=== PATIENT | female | born 1980 | race African-American/Black ===

== ENCOUNTER 2016-09-09 03:55 | Emergency (ER) | payer BC, OTHER ==
[~2016-09-09] VITALS: Ht 172.7 cm; Wt 131.1 kg
[~2016-09-09 03:55] MED LIST: ACET-704 PO; AMOX1TAB61 PO; NAPR500T8 PO; PRED50TA PO
--- NOTE | 2016-09-09 04:07 | PHYS DOC ---
Past Medical History Past Medical History: Other Additional Past Medical Histor: PCOS, ECTOPIC PREGNANCIES Past Surgical History: Tubal ligation, Other Additional Past Surgical Histo: D&C Alcohol Use: None Drug Use: None Adult General Chief Complaint Chief Complaint: FACE PROBLEM HPI HPI Patient is a 35 year old female presenting to the emergency department for evaluation of facial pain that has been going on for the past 4-5 days. Patient reports that both of her jaws are hurting and she has been taking ibuprofen which has taken the left jaw pain away however now her right jaw is hurting her. She feels that her wisdom teeth are coming in. No fevers chills nausea vomiting facial swelling. Review of Systems Review of Systems Constitutional: Denies fever or chills [] HENT: Denies nasal congestion or sore throat [] Respiratory: Denies cough or shortness of breath [] GI: Denies abdominal pain, nausea, vomiting, bloody stools or diarrhea [] Current Medications Current Medications Current Medications Medications (Trade) Dose Ordered Sig/Paula Start Time Stop Time Status Last Admin Dose Admin Bupivacaine HCl (Sensorcaine-Mpf 0.25%) 5 ml 1X ONCE 09/09/16 05:00 09/09/16 05:01 DC Lidocaine/ Epinephrine (Xylocaine 1%-Epi 1:100,000) 5 ml 1X ONCE 09/09/16 05:00 09/09/16 05:01 DC Oxycodone/ Acetaminophen (Percocet 5/325) 2 tab 1X ONCE 09/09/16 06:00 09/09/16 06:01 09/09/16 05:45 2 TAB Allergies Allergies Allergies Coded Allergies Type Severity Reaction Last Updated Verified No Known Drug Allergies 01/10/16 No Physical Exam Physical Exam Constitutional: Well developed, well nourished, no acute distress, non-toxic appearance. [] HENT: Normocephalic, atraumatic, bilateral external ears normal, oropharynx moist, no oral exudates, nose normal. Patient with no obvious facial swelling. Bilateral TMJ pain to palpation however she has ability to fully open her mouth. No periapical abscess noted. Neck: Normal range of motion, no tenderness, supple, no stridor. [] Cardiovascular:Heart rate regular rhythm, no murmur [] Lungs & Thorax: Bilateral breath sounds clear to auscultation [] Current Patient Data Vital Signs Vital Signs Date Time Temp Pulse Resp B/P Pulse Ox O2 Delivery O2 Flow Rate FiO2 09/09/16 05:45 16 09/09/16 04:32 98.4 66 96 Room Air 98.4 EKG EKG [] Radiology/Procedures Radiology/Procedures R inferior alveolar nerve block with 5 mL of 1-1 lidocaine with epinephrine .25 % Marcaine. Right posterior superior alveolar nerve block with 5 mL of 1-1 lidocaine with epinephrine to 0.25% Marcaine. Patient tolerated the procedure well with no complications. Course & Med Decision Making Course & Med Decision Making Patient with nonspecific jaw pain that is likely related to her wisdom teeth erupting however could just be TMJ either way I told her to follow with the dentist continue NSAIDs and follow up with her primary care provider and come back to the ER sooner with any worsening facial swelling fevers chills nausea vomiting or other general concerns Dragon Disclaimer Dragon Disclaimer This electronic medical record was generated, in whole or in part, using a voice recognition dictation system. Departure Departure Impression: Primary Impression: Pain, dental Disposition: 01 HOME, SELF-CARE Condition: GOOD Referrals: NO PCP (PCP) Patient Instructions: Dental Pain Scripts Hydrocodone/Apap 5-325 ([place] 5-325 Tablet)1 Each Tablet1 Tab PO PRN Q6HRS PRN PAIN #14 TAB Prov:ROMY CARR DO 09/09/16 ROMY CARR DO September 09, 2016 04:07
[2016-09-09 04:32] VITALS: BP 161/82
[2016-09-09] MEDS ORDERED: HYDR-971 PO (04:32)
[2016-09-09] MEDS ORDERED: LIDOCAINE 1%/EPI 1:100,000 20 ML VIAL. INJ ONE (05:00)
[2016-09-09] MEDS ORDERED: BUPIVACAINE MPF 0.25% 10 ML VIAL. IJ ONE (05:00)
[2016-09-09] MEDS ORDERED: OXYCODONE/APAP 5/325 TABLET. PO ONE (06:00)
== END 2016-09-09 05:50 | disposition home or self-care (01) ==
LOC: ER 03:55
DX: K08.89 Other specified disorders of teeth and supporting structures (principal); R51 Headache; Z98.51 Tubal ligation status; E28.2 Polycystic ovarian syndrome
CPT/HCPCS: 64400; 99284-25

== ENCOUNTER 2017-02-07 10:32 | Emergency (ER) | payer BC ==
[~2017-02-07] VITALS: Ht 172.7 cm; Wt 132.0 kg
[~2017-02-07 10:32] MED LIST changes: +HYDR-971 PO
[2017-02-07 10:37] VITALS: BP 145/75
[2017-02-07] MEDS ORDERED: silver sulfADIAZINE 1% CREAM 25GM TUBE. TP ONE (10:45)
[2017-02-07] MEDS ORDERED: IBUPROFEN 400 MG TABLET. PO ONE (10:45)
[2017-02-07] MEDS ORDERED: SILV20CR14 TP (11:02)
[2017-02-07] MEDS ORDERED: ACET325T9 PO (11:02)
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
== END 2017-02-07 12:06 | disposition home or self-care (01) ==
LOC: ER 10:32
DX: T22.111A Burn of first degree of right forearm, initial encounter (principal); T31.0 Burns involving less than 10% of body surface; E28.2 Polycystic ovarian syndrome; X10.2XXA Contact with fats and cooking oils, initial encounter; Y93.89 Activity, other specified; Y92.89 Other specified places as the place of occurrence of the external cause; Y99.8 Other external cause status
CPT/HCPCS: 16020; 99284-25